=== PATIENT | female | born 2000 | race Caucasian/White ===

== ENCOUNTER 2021-04-29 12:01 | Emergency (ER) | payer OTHER, MEDICAID, SELFPAY ==
[2021-04-29 12:04] VITALS: BP 155/91; PULSE 91; RESP 14; TEMP 37.3; O2SAT 98; BMI 26.4
--- NOTE | 2021-04-29 12:37 | DI.US.S_ITS ---
PROCEDURE: US ABDOMEN LIMITED INDICATIONS: umbilical hernia TECHNIQUE: Real-time focused scanning was performed of the umbilicus, with image documentation. COMPARISON: None. FINDINGS: Palpable abnormality at the umbilicus corresponds to a periumbilical hernia containing bowel measuring 2.5 cm. The hernia neck measures 1.1 cm. The hernia is non reducible. No changes appreciated with Valsalva. IMPRESSION: Periumbilical non reducible hernia containing bowel. Patient would likely benefit from surgical consultation. Consider further evaluation with CT abdomen pelvis with IV contrast. Dictated by: El Villatoro M.D. on 04/29/2021 at 13:30 Approved by: El Villatoro M.D. on 04/29/2021 at 13:33
--- NOTE | 2021-04-29 12:58 | ED.ABDPAIN ---
HPI - Abdominal Pain <Fabricio Aguilar PA-C - Last Filed: 04/29/21 14:47> General Chief Complaint: Abdominal Pain Stated Complaint: sent by [facility], check for hernia Time Seen by Provider: 04/29/21 12:06 Source: patient Mode of arrival: Ambulatory Limitations: no limitations History of Present Illness HPI narrative: Deonna presents today with chief complaint of pain around her belly button that has been getting worse over the course of the last week. She was seen at a walk-in clinic earlier today and recommended to come here for concern of umbilical hernia. She now reports that the pain is constant starting today. Pain is made worse by touching the area, walking, bending over, or straining. Nothing seems to make the pain much better. She is otherwise healthy and does not have any significant past medical history. She denies any significant surgical history. She denies any constipation, nausea, vomiting, diarrhea, rash. She has no other acute concerns or complaints at this time. Related Data Home Medications Medication Instructions Recorded Confirmed CHOLECALCIFEROL (VITAMIN D3) 400 unit PO QDAY #0 08/16/12 (Vitamin D3) Loratadine (CHILDREN'S CLARITIN) 5 mg PO BID #0 08/16/12 MULTIVITAMIN 1 tab PO QDAY #0 08/16/12 Previous Rx's Medication Instructions Recorded erythromycin with ethanol 2 % 1 edgar TP HS #30 gm 09/29/16 topical gel (Erygel) Allergies Allergy/AdvReac Type Severity Reaction Status Date / Time No Known Drug Allergies Allergy Verified 04/29/21 12:08 Review of Systems <Fabricio Aguilar PA-C - Last Filed: 04/29/21 14:47> Review of Systems Narrative: As per HPI Patient History <Fabricio Aguilar PA-C - Last Filed: 04/29/21 14:47> Medical History (Updated 04/29/21 @ 14:43 by Fabricio Aguilar PA-C) Acne Surgical History (Updated 03/04/18 @ 20:29 by Cely Villalba) Surgical procedure planned Social History Smoking Status: Current every day smoker Smoking Status: Current every day smoker alcohol intake frequency: holidays/special occasions only Substance Use Type: does not use Exam <Fabricio Aguilar PA-C - Last Filed: 04/29/21 14:47> Narrative Exam Narrative: Exam Narrative: Const General: cooperative, healthy appearing, comfortable, no acute distress, well developed and well groomed Nutritional Appearance: average body habitus Orientation: alert and oriented x3 HENMT Head: normal to inspection and atraumatic Ears: hearing grossly normal bilaterally Nose: external nose normal and nares normal Face and sinus: normal facial exam Neck Neck: normal visual inspection and supple Resp Effort & Inspection: normal respiratory effort, able to speak in complete sentences, no audible wheezes, not labored, no nasal flaring and no respiratory distress Neuro General: alert, oriented x3, gait normal, tone normal and moves all extremities Cognition: normal cognition Speech: speech normal Gait: normal gait GI Nondistended, normal bowel sounds, umbilical tenderness and mass noted with palpation. Not reducible. No overlying skin changes. Psych Appearance: grossly normal and well kempt Mental Status: mental status grossly normal Speech and Movement: speech and movement normal Mood: congruent mood Affect: normal affect Initial Vital Signs Initial Vital Signs: Vital Signs Temperature 99.1 F 04/29/21 12:04 Pulse Rate 91 H 04/29/21 12:04 Respiratory Rate 14 04/29/21 12:04 Blood Pressure 155/91 H 04/29/21 12:04 Pulse Oximetry 98 04/29/21 12:04 <Eulogio Grijalva DO - Last Filed: 04/29/21 14:55> Initial Vital Signs Initial Vital Signs: Vital Signs Temperature 99.1 F 04/29/21 12:04 Pulse Rate 91 H 04/29/21 12:04 Respiratory Rate 14 04/29/21 12:04 Blood Pressure 155/91 H 04/29/21 12:04 Pulse Oximetry 98 04/29/21 12:04 Course <Fabricio Aguilar PA-C - Last Filed: 04/29/21 14:47> Course Course Narrative: I spoke with Dr. Hsieh with general surgery and he reviewed the CT scan. She does not have any physical exam or historical findings to suggest bowel obstruction and CT does show any loops of bowel within the herniation site. He recommended outpatient follow-up at this time with ER return precautions. Orders Ordered: ED Orders 04/29/21 12:36 Urine Culture Stat Urine Microscopic Stat 04/29/21 12:37 US abdomen limited Stat 04/29/21 13:10 COVID19 -Nasal swab/Pre-Proc Stat 04/29/21 13:16 Complete Blood Count AUTO DIFF Stat Comprehensive Metabolic Panel Stat 04/29/21 13:59 CT abdomen pelvis w con Stat Vital Signs Vital signs: Vital Signs - 8 hr 04/29/21 12:04 Temperature 99.1 F Pulse Rate 91 H Respiratory Rate 14 Blood Pressure 155/91 H Pulse Oximetry 98 <Eulogio Grijalva DO - Last Filed: 04/29/21 14:55> Orders Ordered: ED Orders 04/29/21 12:36 Urine Culture Stat Urine Microscopic Stat 04/29/21 12:37 US abdomen limited Stat 04/29/21 13:10 COVID19 -Nasal swab/Pre-Proc Stat 04/29/21 13:16 Complete Blood Count AUTO DIFF Stat Comprehensive Metabolic Panel Stat 04/29/21 13:59 CT abdomen pelvis w con Stat Vital Signs Vital signs: Vital Signs - 8 hr 04/29/21 12:04 Temperature 99.1 F Pulse Rate 91 H Respiratory Rate 14 Blood Pressure 155/91 H Pulse Oximetry 98 MDM - Abdominal Pain <Fabricio Aguilar PA-C - Last Filed: 04/29/21 14:47> Lab Data Result diagrams: 04/29/21 13:16 04/29/21 13:16 Labs: Lab Results 04/29/21 04/29/21 04/29/21 Range/Units 12:36 13:10 13:16 WBC 7.8 (4.5-11.0) X10^3/uL RBC 4.90 (4.0-5.2) X10^6/uL Hgb 14.2 (12.0-16.0) g/dL Hct 42.2 (36-46) % MCV 86.2 (80-100) fL MCH 29.0 (26-34) PG MCHC 33.7 (30-36) % RDW 12.8 (11.6-14.8) % Plt Count 325 (150-400) X10^3/uL Neut % (Auto) 67.7 (50-75) % Lymph % (Auto) 25.7 (25-40) % Forrest % (Auto) 5.0 (3-14) % Eos % (Auto) 1.1 L (2-4) % Baso % (Auto) 0.5 (0-2) % Neut # (Auto) 5300 (7885-2754) /uL Lymph # (Auto) 2000 (2254-8616) /uL Forrest # (Auto) 400 (0-900) /uL Eos # (Auto) 100 (0-450) /uL Baso # (Auto) 0 (0-100) /uL Sodium (137-145) mmol/L Potassium (3.4-5.1) mmol/L Chloride (98-107) mmol/L Carbon Dioxide (22-32) mmol/L BUN (7-17) mg/dL Creatinine (0.52-1.04) mg/dL Estimated GFR (>60) mL/min BUN/Creatinine Ratio (6-22) Glucose (70-100) mg/dL Calcium (8.4-10.2) mg/dL Total Bilirubin (0.2-1.3) mg/dL AST (14-36) IU/L ALT (<35) IU/L Alkaline Phosphatase (38-126) U/L Total Protein (6.3-8.2) g/dL Albumin (3.5-5.0) g/dL Globulin (1.7-4.1) g/dL Albumin/Globulin Ratio (1.0-2.8) Urine RBC 1-5/hpf (0-5/HPF) Urine WBC 0-1/hpf (0-5/HPF) Ur Squamous Epith Cells 0-1 /hpf (0-5/HPF) Urine Bacteria Occasional (0-1) (None) Ur Culture Indicated? Aircraft [employer] SARS-CoV-2 (PCR) Negative (Negative) 04/29/21 Range/Units 13:16 WBC (4.5-11.0) X10^3/uL RBC (4.0-5.2) X10^6/uL Hgb (12.0-16.0) g/dL Hct (36-46) % MCV (80-100) fL MCH (26-34) PG MCHC (30-36) % RDW (11.6-14.8) % Plt Count (150-400) X10^3/uL Neut % (Auto) (50-75) % Lymph % (Auto) (25-40) % Forrest % (Auto) (3-14) % Eos % (Auto) (2-4) % Baso % (Auto) (0-2) % Neut # (Auto) (4691-0833) /uL Lymph # (Auto) (2824-4160) /uL Forrest # (Auto) (0-900) /uL Eos # (Auto) (0-450) /uL Baso # (Auto) (0-100) /uL Sodium 141 (137-145) mmol/L Potassium 3.8 (3.4-5.1) mmol/L Chloride 105 (98-107) mmol/L Carbon Dioxide 27 (22-32) mmol/L BUN 6 L (7-17) mg/dL Creatinine 0.66 (0.52-1.04) mg/dL Estimated GFR > 60.0 (>60) mL/min BUN/Creatinine Ratio 9.1 (6-22) Glucose 79 (70-100) mg/dL Calcium 9.7 (8.4-10.2) mg/dL Total Bilirubin 0.7 (0.2-1.3) mg/dL AST 29 (14-36) IU/L ALT 17 (<35) IU/L Alkaline Phosphatase 58 (38-126) U/L Total Protein 7.9 (6.3-8.2) g/dL Albumin 4.8 (3.5-5.0) g/dL Globulin 3.1 (1.7-4.1) g/dL Albumin/Globulin Ratio 1.5 (1.0-2.8) Urine RBC (0-5/HPF) Urine WBC (0-5/HPF) Ur Squamous Epith Cells (0-5/HPF) Urine Bacteria (None) Ur Culture Indicated? SARS-CoV-2 (PCR) (Negative) Point of care testing: Point of Care Testing Test Results Negative Urine Dip Bedside Urine Glucose Negative Bedside Urine Bilirubin - Negative Bedside Urine Ketone - Negative Urine Specific [place] 1.015 Bedside Urine Occult Blood +++ Bedside Urine pH 6 Bedside Urine Protein - Negative Bedside Urine Urobilinogen - Negative Bedside Urine Nitrite - Negative Bedside Urine Leukocytes - Negative Esterase MDM Narrative Medical decision making narrative: Differential diagnosis includes bowel obstruction, incarcerated hernia, subcutaneous cyst, abscess. No obvious signs of infection noted at this time. She is still having normal bowel movements and passing gas regularly. She denies any nausea or vomiting. CT does not show any obvious bowel incarceration or obstruction. Laboratory evaluation is reassuring. Strict ER return precautions were discussed with patient. Patient verbalizes understanding and agrees to plan and has no further concerns at this time. Thank you A [id number] system was used with the dictation of this note. Please disregard any spelling or grammatical errors. <Eulogio Grijalva, DO - Last Filed: 04/29/21 14:55> Lab Data Labs: Lab Results 04/29/21 04/29/21 04/29/21 Range/Units 12:36 13:10 13:16 WBC 7.8 (4.5-11.0) X10^3/uL RBC 4.90 (4.0-5.2) X10^6/uL Hgb 14.2 (12.0-16.0) g/dL Hct 42.2 (36-46) % MCV 86.2 (80-100) fL MCH 29.0 (26-34) PG MCHC 33.7 (30-36) % RDW 12.8 (11.6-14.8) % Plt Count 325 (150-400) X10^3/uL Neut % (Auto) 67.7 (50-75) % Lymph % (Auto) 25.7 (25-40) % Forrest % (Auto) 5.0 (3-14) % Eos % (Auto) 1.1 L (2-4) % Baso % (Auto) 0.5 (0-2) % Neut # (Auto) 5300 (4570-0373) /uL Lymph # (Auto) 2000 (0570-9359) /uL Forrest # (Auto) 400 (0-900) /uL Eos # (Auto) 100 (0-450) /uL Baso # (Auto) 0 (0-100) /uL Sodium (137-145) mmol/L Potassium (3.4-5.1) mmol/L Chloride (98-107) mmol/L Carbon Dioxide (22-32) mmol/L BUN (7-17) mg/dL Creatinine (0.52-1.04) mg/dL Estimated GFR (>60) mL/min BUN/Creatinine Ratio (6-22) Glucose (70-100) mg/dL Calcium (8.4-10.2) mg/dL Total Bilirubin (0.2-1.3) mg/dL AST (14-36) IU/L ALT (<35) IU/L Alkaline Phosphatase (38-126) U/L Total Protein (6.3-8.2) g/dL Albumin (3.5-5.0) g/dL Globulin (1.7-4.1) g/dL Albumin/Globulin Ratio (1.0-2.8) Urine RBC 1-5/hpf (0-5/HPF) Urine WBC 0-1/hpf (0-5/HPF) Ur Squamous Epith Cells 0-1 /hpf (0-5/HPF) Urine Bacteria Occasional (0-1) (None) Ur Culture Indicated? Aircraft [employer]er SARS-CoV-2 (PCR) Negative (Negative) 04/29/21 Range/Units 13:16 WBC (4.5-11.0) X10^3/uL RBC (4.0-5.2) X10^6/uL Hgb (12.0-16.0) g/dL Hct (36-46) % MCV (80-100) fL MCH (26-34) PG MCHC (30-36) % RDW (11.6-14.8) % Plt Count (150-400) X10^3/uL Neut % (Auto) (50-75) % Lymph % (Auto) (25-40) % Forrest % (Auto) (3-14) % Eos % (Auto) (2-4) % Baso % (Auto) (0-2) % Neut # (Auto) (2966-0004) /uL Lymph # (Auto) (6738-9528) /uL Forrest # (Auto) (0-900) /uL Eos # (Auto) (0-450) /uL Baso # (Auto) (0-100) /uL Sodium 141 (137-145) mmol/L Potassium 3.8 (3.4-5.1) mmol/L Chloride 105 (98-107) mmol/L Carbon Dioxide 27 (22-32) mmol/L BUN 6 L (7-17) mg/dL Creatinine 0.66 (0.52-1.04) mg/dL Estimated GFR > 60.0 (>60) mL/min BUN/Creatinine Ratio 9.1 (6-22) Glucose 79 (70-100) mg/dL Calcium 9.7 (8.4-10.2) mg/dL Total Bilirubin 0.7 (0.2-1.3) mg/dL AST 29 (14-36) IU/L ALT 17 (<35) IU/L Alkaline Phosphatase 58 (38-126) U/L Total Protein 7.9 (6.3-8.2) g/dL Albumin 4.8 (3.5-5.0) g/dL Globulin 3.1 (1.7-4.1) g/dL Albumin/Globulin Ratio 1.5 (1.0-2.8) Urine RBC (0-5/HPF) Urine WBC (0-5/HPF) Ur Squamous Epith Cells (0-5/HPF) Urine Bacteria (None) Ur Culture Indicated? SARS-CoV-2 (PCR) (Negative) Point of care testing: Point of Care Testing Test Results Negative Urine Dip Bedside Urine Glucose Negative Bedside Urine Bilirubin - Negative Bedside Urine Ketone - Negative Urine Specific [place] 1.015 Bedside Urine Occult Blood +++ Bedside Urine pH 6 Bedside Urine Protein - Negative Bedside Urine Urobilinogen - Negative Bedside Urine Nitrite - Negative Bedside Urine Leukocytes - Negative Esterase Discharge Plan Departure Patient Disposition: Home Clinical Impression: Umbilical hernia Qualifiers: Obstruction and gangrene presence: without obstruction or gangrene Qualified Code(s): K42.9 - Umbilical hernia without obstruction or gangrene Activity Restrictions/Additional Instructions: It was very nice to meet you this afternoon. You have an umbilical hernia that does not appear to have any type of obstruction at this time. Please follow-up with your PCP and follow-up with a general surgeon to discuss surgical correction of this problem. If he develops significant worsening pain, fever, constipation, nausea with vomiting, or have any other acute concerns or complaints do not hesitate to return for re-evaluation. Thank you Fabricio Aguilar PA-C Prescriptions: No Action Loratadine (CHILDREN'S CLARITIN) 5 mg PO BID Qty: 0 RF: 0 MULTIVITAMIN 1 tab PO QDAY Qty: 0 RF: 0 CHOLECALCIFEROL (VITAMIN D3) (Vitamin D3) 400 unit PO QDAY Qty: 0 RF: 0 erythromycin with ethanol [Erygel] 2 % gel 1 edgar TP HS Qty: 30 RF: 0 Referrals: Fabricio Aguilar PA-C [Emergency Provider] - Franklyn Hsieh MD [Physician] - (umbilical hernia) Krista Laws DO [Primary Care Provider] - <Eulogio Grijalva DO - Last Filed: 04/29/21 14:55> Cosign ED Attending Cosignature Attestation: Dr Grijalva Co-Sign Statement: I was available for consultation during this patient's emergency department visit. This chart is signed by myself for administrative purposes only. I did not have direct contact with this patient during this visit. They were seen independently by the APC.
[2021-04-29 13:39] LABS: Add Manual Diff / Slide Review NO; Basophils Absolute Auto 0 /uL (0-100); Basophils Percent Auto 0.5 % (0-2); Eosinophils Absolute Auto 100 /uL (0-450); Eosinophils Percent Auto 1.1 % (2-4); Hematocrit 42.2 % (36-46); Hemoglobin 14.2 g/dL (12.0-16.0); Lymphocytes Absolute Auto 2000 /uL (1100-4500); Lymphocytes Percent Auto 25.7 % (25-40); Mean Corpuscular HGB Conc 33.7 % (30-36); Mean Corpuscular Volume 86.2 fL (80-100); Monocytes Absolute Auto 400 /uL (0-900); Neutrophils Absolute Auto 5300 /uL (1500-7000); Neutrophils Percent Auto 67.7 % (50-75); Platelet Count 325 X10^3/uL (150-400); Red Cell Distribution Width 12.8 % (11.6-14.8); White Blood Cell Count 7.8 X10^3/uL (4.5-11.0)
[2021-04-29 13:47] LABS: COVID19 -Nasal RAPID Negative (Negative)
[2021-04-29 13:50] LABS: Alanine Aminotransferase 17 IU/L (<35); Albumin 4.8 g/dL (3.5-5.0); Albumin Globulin Ratio 1.5 (1.0-2.8); Alkaline Phosphatase 58 U/L (38-126); Aspartate Aminotransferase 29 IU/L (14-36); BUN Creatinine Ratio 9.1 (6-22); Bilirubin Total 0.7 mg/dL (0.2-1.3); Blood Urea Nitrogen 6 mg/dL (7-17); Calcium 9.7 mg/dL (8.4-10.2); Carbon Dioxide 27 mmol/L (22-32); Chloride 105 mmol/L (98-107); Estimated Glomerular Filt Rate > 60.0 mL/min (>60); Globulin 3.1 g/dL (1.7-4.1); Glucose 79 mg/dL (70-100); HEMOLYSIS < 15 (0-50); Potassium 3.8 mmol/L (3.4-5.1); Sodium 141 mmol/L (137-145); Total Protein 7.9 g/dL (6.3-8.2)
--- NOTE | 2021-04-29 13:59 | DI.CT.S_ITS ---
PROCEDURE: CT ABDOMEN PELVIS W CON INDICATIONS: incarcerated umbilical hernia TECHNIQUE: After the administration of intravenous contrast, axial sections acquired from the lung bases to the pubic symphysis. Coronal and sagittal reformats were performed. For radiation dose reduction, the following was used: automated exposure control, adjustment of mA and/or kV according to patient size. COMPARISON: [facility], , US ABDOMEN LIMITED, 04/29/2021, 13:04. FINDINGS: Image quality: Excellent. Lung bases: Unremarkable. Heart: No significant findings. ABDOMEN: Liver: Unremarkable. Gallbladder: Unremarkable. Biliary ducts: Unremarkable. Pancreas: Unremarkable. Spleen: Unremarkable. Adrenal Glands: Unremarkable. Kidneys and Ureters: Unremarkable. Stomach and Bowel: Stomach, small bowel loops, and colon are unremarkable. Normal appendix. Peritoneum: No abnormal intraperitoneal fluid. No free air. Ventral Wall: No hernias. Mild soft tissue thickening and stranding around the umbilicus Abdominal Nodes: No retroperitoneal or mesenteric adenopathy by size criteria. Vessels: Aorta and inferior vena cava are normal in size. PELVIS: Pelvic Organs: Uterus is normal. There is a 1.5 x 2.6 cm cyst in the right adnexa. In addition, there is a possible 1.7 x 2.3 cm paraovarian cyst. Left ovary is unremarkable. No pathological free fluid in the cul-de-sac. Bladder: There is mild diffuse bladder wall thickening suggesting cystitis. Pelvic Nodes: No enlarged lymph nodes. Miscellaneous: No hernias are seen. Bones: Unremarkable. IMPRESSION: 1. No umbilical hernia is identified. There is soft tissue thickening and stranding around the umbilicus, most likely secondary to cellulitis. 2. Mild bladder wall thickening suspicious for cystitis. 3. Right ovarian cyst and possible paraovarian cyst. Recommend ultrasound follow-up if clinically indicated. Dictated by: Katharine Anderson M.D. on 04/29/2021 at 14:32 Approved by: Katharine Anderson M.D. on 04/29/2021 at 14:40
[2021-04-29 14:29] LABS: Bacteria Urine Occasional (0-1); RBC Urine 1-5/HPF (0-5/HPF); Squamous Epithelial Cell Urine 0-1 /HPF (0-5/HPF); WBC Urine 0-1/HPF (0-5/HPF)
[2021-04-29 15:02] VITALS: BP 116/69; PULSE 78; O2SAT 98
== END 2021-04-29 15:03 | disposition home or self-care (01) ==
PROVIDERS: Emergency Provider Physician Assistant; Family Provider Family Medicine; PCP Family Medicine
DX: K42.9 Umbilical hernia without obstruction or gangrene (principal); Z20.822 Contact with and (suspected) exposure to COVID-19
CPT/HCPCS: 36415; 74177; 76705; 80053; 81003; 81015; 81025; 85025; 87086; 87635; 99284; C9803; Q9967